=== PATIENT | female | born 1965 | race Caucasian/White ===

== ENCOUNTER → 2021-11-16 08:32 | Outpatient (BNVA) | payer MEDICAID, SELFPAY | PROVIDERS: PCP Internal Medicine; Visit Provider Nurse Practitioner Family | DX: R51.9 Headache, unspecified (principal); G89.29 Other chronic pain; G25.81 Restless legs syndrome; F43.12 Post-traumatic stress disorder, chronic | CPT/HCPCS: 99212 ==

== ENCOUNTER 2021-12-07 10:00 | Outpatient (RCR) | payer OTHER, SELFPAY ==
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
--- NOTE | 2021-11-11 08:57 | PC.NURSE ---
Case opened in tx team
--- NOTE | 2021-11-11 14:30 | PC.NURSE ---
I spoke with the client to review her treatment plan. She states that she often feels as if someone is breaking into her home in the middle of the night. When she gets severely anxious she will the take a ride in her car . What she presented feels somewhat delusional although difficult to distinguish if this is delusional although I believe so . We discussed calling crisis for support if needed. She said she would . I Gave her the number for [facility] crisis line and told her I would call them to let them know she may be calling.
--- NOTE | 2021-11-11 15:01 | PC.NURSE ---
called N crisis and put client on alert. She will be on alert for seven days. I spoke with Flora
--- NOTE | 2021-11-15 10:58 | HO.PHPPROGNO ---
Subjective Subjective Date of Service: 11/15/21 Reason For Visit: DEPRESSION Guardianship: No Medical Problems Affecting Mental Status: No Interim History: Describes mood as I'm alright, less tearful . No thoughts of harm to self or others. Reports feels safe in home. Would like dose decrease in seroquel, has found it helpful in place of cannabis. States she knows she was having paranoid thoughts, I'm trying to figure out why I had them . Continues with some depressive and PTSD sx, although some improvement. Interested in prazosin for nightmares. Medication Compliance: Yes Side effects from medications: Yes (the seroquel 25 felt too strong , foggy. asking for lower dose) Attending Groups: Yes Review of Systems Acute medical concerns: No Medical Review of Systems: unchanged Review of Systems Review of Systems Yes all other systems are reviewed and are negative Constitutional: Reports no additional constitutional complaints Mental Status Exam Mental Status Exam Narrative: Well-developed, well-nourished female, in NAD. Patient Appearance: Well Grooomed and Appropriate Patient Orientation: Person, Place, Time and Situation Level of Consciousness: Appropriate and Alert Patient Behavior: Appropriate, Cooperative and Good Eye Contact Mood Description: Depressed and Anxious Affect Description: Depressed and Anxious Patient Cognition Impaired: No Ability to Follow Directions: Excellent Speech Pattern: Clear, Appropriate, Spontaneous Speech and Coherent Memory Description: Intact Hallucinations: None Thought Process: Intact Thought Content: positive for Intact, positive for Goal Oriented and positive for Linear Depressive Symptoms: Increased Anxiety, Difficulty Sleeping, Changes in Appetite (reduced), Loss of Int. in Activity, Unhappiness, Increased Fatigue and Difficulty Concentrating Judgement: Fair Assessment & Plan Assessment & Plan (1) Post-traumatic stress disorder, chronic: Status: Acute Code(s): F43.12 - Post-traumatic stress disorder, chronic Assessment and Plan: Has found seroquel useful but too strong. Says it is also helping her with cessation of cannabis use. Discuss lowering dose to 12.5mg, she was in agreement with this. willing to try prazosin for nightmares r/t ptsd. (2) Major depressive disorder, recurrent, moderate: Status: Acute Code(s): F33.1 - Major depressive disorder, recurrent, moderate Assessment and Plan: reports continues with depressive symptoms, but notices improvement with lexapro. Says she is less teary . Would like to continue with current lexapro dose for now. Less intrusive, obsessional thoughts. States that she feels her thought process is better . States she understands that she was having some paranoia, but is no longer experiencing. Believes they are not related to her TBI. Assessment and Plan: 1. Continue lexapro 10mg as prescribed. 2. Continue seroquel, but take 1/2 tab (12.5mg) instead of 25mg, due to s/e. 3. Start prazosin 1mg at bedtime. 4. Continue with current [facility] plan of care. 5. Follow-up as per protocol. Patient educated on: diagnosis, medication risk/benefits and therapeutic strategies Informed Consent: understands Reason for contiued partial hosp. stay Substantial Risk for: inability to function and med/psych decompensation Certification I certify that partial hospital treatment is medically necessary due to the symptoms and problems resulting from the patient's mental illness and the failure to treat the patient at the partial hospital level of care would likely result in the patient requiring inpatient psychiatric care which could not be prevented at a less intensive level of care. I spent minutes with the patient and/or on the patient floor today, greater than?50% of which was spent counseling/coordinating care. Discharge Plan Discharge Attending provider: Joey Maradiaga Primary Care Provider: Larry Mcmanus Medications: New quetiapine [Seroquel] 25 mg tablet See Rx Instructions .ROUTE .COMPLEX 7 Days Qty: 21 RF: 0 prazosin 1 mg capsule 1 mg PO BEDTIME 7 Days Qty: 7 RF: 0 No Action nicotine 14 mg/24 hr Patch 24 Hour 1 patch TRANSDERMAL DAILY RF: 0 ibuprofen [Motrin] 800 mg Tablet 800 mg PO BID PRN (Reason: Pain) RF: 0 ropinirole 3 mg Tablet 3 mg PO BEDTIME RF: 0 ropinirole 3 mg Tablet 3 mg PO BID PRN (Reason: Pain) RF: 0 escitalopram oxalate [Lexapro] 10 mg Tablet 10 mg PO DAILY RF: 0 lidocaine 5 % Ointment 1 appl TOPICAL BID PRN (Reason: Pain) RF: 0 sumatriptan succinate [Imitrex] 100 mg tablet See Rx Instructions PO .COMPLEX RF: 0 cetirizine 10 mg tablet 10 mg PO DAILY PRNRF: 0 fluticasone furoate 50 mcg/actuation blister with device inhalation RF: 0 clonazepam [Klonopin] 1 mg tablet 1 mg PO TID RF: 0 magnesium oxide 400 mg magnesium tablet 400 mg PO DAILY RF: 0 riboflavin (vitamin B2) [Vitamin B-2] 100 mg tablet 100 mg PO BID RF: 0 Referrals: Larry Mcmanus DO, MD [Primary Care Provider] - 1 Week Telehealth Telehealth Location of provider rendering services: practice address Location of patient: address on file Patient Identification confirmed using: Name, : Yes Telehealth method: video Patient verbally consented to treatment: Yes Patient verbally consented to billing insurance company: Yes Patient informed of any privacy concerns related to visit: Yes Time spent with patient (mins): 20
--- NOTE | 2021-11-17 13:12 | PC.NURSE ---
I spoke with the client after group to check in about how she is doing. She states that she still feels anxious =in group and can relate to others who share that they are anxious and/or paranoid. She states that she is fearful that others will thing that she trying to relate about everything. I assured her that most people coming here have common issues. She asked to start doing half days to possibly extend her time here. I agreed to drop her down to half day as I have to request more time already.
--- NOTE | 2021-11-18 08:25 | PC.NURSE ---
The client called out sick. She states that she has a very bad headache and didn't sleep well.
--- NOTE | 2021-11-21 14:56 | HO.PHPPROGNO ---
Subjective Subjective Date of Service: 11/21/21 Reason For Visit: DEPRESSION Guardianship: No Medical Problems Affecting Mental Status: No Interim History: Client states I just don't feel good, mentally/physically right now . Sates I feel sad, low, empty . Hypervigilant, fearful. Has not been taking prescribed quetiapine. Requested increase of Lexapro to 15 mg daily. Denies SI, reports feels safe at this time. Medication Compliance: Intermittent (taking lexapro, has not been taking seroquel) Side effects from medications: No Attending Groups: Yes Review of Systems Acute medical concerns: No Medical Review of Systems: unchanged Review of Systems Review of Systems Yes all other systems are reviewed and are negative Constitutional: Reports no additional constitutional complaints Mental Status Exam Mental Status Exam Narrative: Well-developed, well-nourished female, in NAD. Patient Appearance: Fatigued and Appropriate Patient Orientation: Person, Place, Time and Situation Level of Consciousness: Appropriate Patient Behavior: Appropriate, Cooperative and Good Eye Contact Behavior Comments: Exaggerated startle response, hypervigilance observed. Mood Description: Depressed and Sad Affect Description: Depressed, Fearful, Anxious and Sad Patient Cognition Impaired: No Ability to Follow Directions: Excellent Speech Pattern: Clear, Appropriate, Coherent and Soft-Spoken Memory Description: Intact Hallucinations: None Delusions: Paranoid Ideation Thought Process: Intact Thought Content: positive for Intact Depressive Symptoms: Increased Anxiety, Difficulty Sleeping, Changes in Appetite (reduced), Loss of Int. in Activity, Hopelessness, Unhappiness, Increased Fatigue, Low Self Esteem and Difficulty Concentrating Judgement: Fair Assessment & Plan Assessment & Plan (1) Major depressive disorder, recurrent, moderate: Status: Acute Code(s): F33.1 - Major depressive disorder, recurrent, moderate Assessment and Plan: Client continues with dysphoric, hopeless mood, describes as ?I am sad, low, empty ?. Presents as paranoid, frightened. Has camera lifted up towards the ceiling so only face, and upper wall and ceiling of room are in screen. Exaggerated startle response, hypervigilance observed. Denies SI at this time. She was asked to contact us and crisis if she feels unsafe at any time. She was in agreement with this. She has not been taking the Seroquel. Encouraged to start taking it today. She stated that she would do so. Requests increase in Lexapro. Discussed increasing it to 15 mg daily for several days and then reassessing. She was in agreement with this plan. (2) Generalized anxiety disorder: Status: Acute Code(s): F41.1 - Generalized anxiety disorder (3) Post-traumatic stress disorder, chronic: Status: Acute Code(s): F43.12 - Post-traumatic stress disorder, chronic Plan 1. Client agreeable to start utilizing scheduled Seroquel at night and p.r.n. daily as prescribed, start today. 2. Increase Lexapro to 15 mg daily. 3. Reassess client in several days. Patient educated on: diagnosis, medication risk/benefits and therapeutic strategies Informed Consent: understands Reason for contiued partial hosp. stay Substantial Risk for: harm to self, inability to function, rapid decompensation and med/psych decompensation Certification I certify that partial hospital treatment is medically necessary due to the symptoms and problems resulting from the patient's mental illness and the failure to treat the patient at the partial hospital level of care would likely result in the patient requiring inpatient psychiatric care which could not be prevented at a less intensive level of care. I spent ___25___ minutes with the patient and/or on the patient floor today, greater than?50% of which was spent counseling/coordinating care. Discharge Plan Discharge Attending provider: Joey Maradiaga Primary Care Provider: Larry Mcmanus Medications: New quetiapine [Seroquel] 25 mg tablet See Rx Instructions .ROUTE .COMPLEX 7 Days Qty: 21 0RF Rx Instructions: 25 mg orally ;Take 25 mg orally scheduled at bedtime, and one tab (25mg) BID prn for anxiety. prazosin 1 mg capsule 1 mg PO BEDTIME 7 Days Qty: 7 0RF No Action nicotine 14 mg/24 hr Patch 24 Hour 1 patch TRANSDERMAL DAILY 0RF ibuprofen [Motrin] 800 mg Tablet 800 mg PO BID PRN (Reason: Pain) 0RF ropinirole 3 mg Tablet 3 mg PO BEDTIME 0RF ropinirole 3 mg Tablet 3 mg PO BID PRN (Reason: Pain) 0RF escitalopram oxalate [Lexapro] 10 mg Tablet 10 mg PO DAILY 0RF lidocaine 5 % Ointment 1 appl TOPICAL BID PRN (Reason: Pain) 0RF sumatriptan succinate [Imitrex] 100 mg tablet See Rx Instructions PO .COMPLEX 0RF Rx Instructions: take 1 tab at onset of headache; if no relief, may repeat 1 tab after at least 2 hrs; max = 2 tabs/24 hrs PO cetirizine 10 mg tablet 10 mg PO DAILY PRN0RF fluticasone furoate 50 mcg/actuation blister with device inhalation 0RF magnesium oxide 400 mg magnesium capsule 400 mg PO BEDTIME Qty: 30 6RF riboflavin (vitamin B2) 400 mg tablet 400 mg PO DAILY Qty: 30 6RF Referrals: Larry Mcmanus DO, MD [Primary Care Provider] - 1 Week Telehealth Telehealth Location of provider rendering services: practice address Location of patient: address on file Patient Identification confirmed using: Name, : Yes Telehealth method: video Patient verbally consented to treatment: Yes Patient verbally consented to billing insurance company: Yes Patient informed of any privacy concerns related to visit: Yes Time spent with patient (mins): 20
--- NOTE | 2021-11-23 15:54 | HO.PHPPROGNO ---
Subjective Subjective Date of Service: 11/23/21 Reason For Visit: DEPRESSION Guardianship: No Medical Problems Affecting Mental Status: No Interim History: Client reports continued intrusive thoughts. Fearful to take medications because she is afraid they will not allow her to wake up in home. Continues with paranoia. No SI, no safety concern at this time. Medication Compliance: No Side effects from medications: No Attending Groups: Yes Review of Systems Acute medical concerns: No Medical Review of Systems: unchanged Review of Systems Review of Systems Yes all other systems are reviewed and are negative Constitutional: Reports no additional constitutional complaints Mental Status Exam Mental Status Exam Narrative: Well-developed, well-nourished female, in NAD. Patient Appearance: Fatigued and Appropriate Patient Orientation: Person, Place, Time and Situation Level of Consciousness: Appropriate Patient Behavior: Appropriate, Cooperative, Anxious and Good Eye Contact Behavior Comments: Exaggerated startle response, hypervigilance observed. Mood Description: Depressed, Anxious and Sad Affect Description: Depressed, Fearful, Anxious and Sad Patient Cognition Impaired: No Ability to Follow Directions: Excellent Speech Pattern: Clear, Appropriate, Coherent and Soft-Spoken Memory Description: Intact Hallucinations: None Delusions: Paranoid Ideation Thought Process: Intact and Rumination Thought Content: positive for Intact and positive for Perseveration (Continues fearful that somebody will break in to home.) Depressive Symptoms: Increased Anxiety, Difficulty Sleeping, Changes in Appetite (reduced), Loss of Int. in Activity, Hopelessness, Unhappiness, Increased Fatigue, Low Self Esteem and Difficulty Concentrating Judgement: Fair Assessment & Plan Assessment & Plan (1) Major depressive disorder, recurrent, moderate: Status: Acute Code(s): F33.1 - Major depressive disorder, recurrent, moderate Assessment and Plan: Client continues with depressed, anxious mood and affect. She reports she has not started taking prazosin as she wishes to be at her mother's house when she takes it. She is also not taking prescribed Seroquel. She reports she is fearful that the medications will make her too tired, and she wants to be able to wake up. Continues with paranoia regarding fear that somebody will hurt her, break into her home. Discussed medications. She continues with Lexapro 10 mg. Denies any side effects from the medication, and reports that she feels it is helping at that dose. Discussed changing atypical antipsychotic from Seroquel to risperidone 0.5 b.i.d., to start today. She was willing to give this a trial. Denies SI, no safety concern. Denies auditory or visual hallucinations, did not appear to be responding to any type of internal stimuli. (2) Generalized anxiety disorder: Status: Acute Code(s): F41.1 - Generalized anxiety disorder (3) Post-traumatic stress disorder, chronic: Status: Acute Code(s): F43.12 - Post-traumatic stress disorder, chronic Plan 1. Discontinue quetiapine. 2. Start risperidone 0.5 b.i.d.. 3. Continue Lexapro 10 mg as prescribed. Client encouraged to start prazosin. Patient educated on: diagnosis, medication risk/benefits and therapeutic strategies Informed Consent: understands Reason for contiued partial hosp. stay Substantial Risk for: inability to function, rapid decompensation and med/psych decompensation Certification I certify that partial hospital treatment is medically necessary due to the symptoms and problems resulting from the patient's mental illness and the failure to treat the patient at the partial hospital level of care would likely result in the patient requiring inpatient psychiatric care which could not be prevented at a less intensive level of care. I spent minutes with the patient and/or on the patient floor today, greater than?50% of which was spent counseling/coordinating care. Discharge Plan Discharge Attending provider: Joey Maradiaga Primary Care Provider: Larry Mcmanus Medications: New prazosin 1 mg capsule 1 mg PO BEDTIME 7 Days Qty: 7 0RF risperidone 0.5 mg tablet 0.5 mg PO BID 7 Days Qty: 14 0RF No Action nicotine 14 mg/24 hr Patch 24 Hour 1 patch TRANSDERMAL DAILY 0RF ibuprofen [Motrin] 800 mg Tablet 800 mg PO BID PRN (Reason: Pain) 0RF ropinirole 3 mg Tablet 3 mg PO BEDTIME 0RF ropinirole 3 mg Tablet 3 mg PO BID PRN (Reason: Pain) 0RF escitalopram oxalate [Lexapro] 10 mg Tablet 10 mg PO DAILY 0RF lidocaine 5 % Ointment 1 appl TOPICAL BID PRN (Reason: Pain) 0RF sumatriptan succinate [Imitrex] 100 mg tablet See Rx Instructions PO .COMPLEX 0RF Rx Instructions: take 1 tab at onset of headache; if no relief, may repeat 1 tab after at least 2 hrs; max = 2 tabs/24 hrs PO cetirizine 10 mg tablet 10 mg PO DAILY PRN0RF fluticasone furoate 50 mcg/actuation blister with device inhalation 0RF magnesium oxide 400 mg magnesium capsule 400 mg PO BEDTIME Qty: 30 6RF riboflavin (vitamin B2) 400 mg tablet 400 mg PO DAILY Qty: 30 6RF Referrals: Larry Mcmanus DO, MD [Primary Care Provider] - 1 Week Telehealth Telehealth Location of provider rendering services: practice address Location of patient: address on file Patient Identification confirmed using: Name, : Yes Telehealth method: video Patient verbally consented to treatment: Yes Patient verbally consented to billing insurance company: Yes Patient informed of any privacy concerns related to visit: Yes Time spent with patient (mins): 20
--- NOTE | 2021-11-24 08:52 | PC.NURSE ---
Addendum entered by Tomasa Villar [facility] 11/24/21 08:57: We discussed skills to use and I said that the nurse will call her. Original Note: The client called out She only slept two hours and is experiencing severe anxiety and panic. She states that she is having side effects from starting the resperdal yesterday.
--- NOTE | 2021-11-24 09:43 | PC.NURSE ---
Patient called staff to let them know she was not coming to the program today. She spoke to staff and stated she only slept 2 hours last night and was anxious and having panic attacks. Hilda Sales Np and I called patient to f/u. Patient stated she tried prescribed Risperdal last night and had racing thoughts all night. She reports she slept for 2 hours then woke up and had a panic attack. She stated the medication was not the right medication for her. Patient also stated last night she was ruminating about her relationship of 6 years ending. Asked patient if she was safe and if she was having thoughts to harm or kill herself. Patient denied thoughts stated she was safe. Denied any paranoid thoughts. Asked patient if she was smoking marijuana. Patient reports she cut down and has not been using during the week however used last weekend. Patient stated she is feeling better as the day goes on. Does not feel she needs to go to the hospital. Patient is scared to try new medications however did agree to start Seroquel per Hilda's instructions 25 mg in the am and 50 mg at night. Patient stated she plans on resting and laying down as her head is, throbbing . Plans on returning to the program tomorrow.
--- NOTE | 2021-11-24 10:00 | PM.EVENT ---
Event Note Date of Service: 11/24/21 Event Note: Called client at home with program RN. Client had called out today. She reports she did not like effect of Risperdal, and only slept 2 hours last night. Recommended at this time to resume Seroquel as follows: Take Seroquel 25 mg scheduled in the morning, and Seroquel 50 scheduled at bedtime. Patient has supply at home. Client denied any SI, HI, reports feeling safe.
--- NOTE | 2021-11-25 15:44 | HO.PHPPROGNO ---
Subjective Subjective Date of Service: 11/25/21 Reason For Visit: DEPRESSION Guardianship: No Medical Problems Affecting Mental Status: No Interim History: Client reports improved sleep with Seroquel 50 mg at bedtime. However, reports medication is too sedating during day. Requesting medication to assist with anxiety during day. Medication Compliance: Intermittent Side effects from medications: Yes (Reports Seroquel too sedating during day.) Attending Groups: Yes Review of Systems Acute medical concerns: No Medical Review of Systems: unchanged Review of Systems Review of Systems Yes all other systems are reviewed and are negative Constitutional: Reports no additional constitutional complaints Mental Status Exam Mental Status Exam Narrative: Conducted phone visit with client. She denies any thoughts of harm to self or others. Denies paranoid thoughts, auditory or visual hallucinations. Patient Orientation: Person, Place, Time and Situation Level of Consciousness: Awake and Alert Patient Behavior: Appropriate and Cooperative Mood Description: Anxious Patient Cognition Impaired: No Ability to Follow Directions: Excellent Speech Pattern: Clear, Appropriate and Coherent Memory Description: Intact Hallucinations: None Delusions: Not Present Thought Process: Intact Thought Content: positive for Intact Depressive Symptoms: Increased Anxiety, Difficulty Sleeping, Hopelessness, Unhappiness and Increased Fatigue Judgement: Fair Assessment & Plan Assessment & Plan (1) Major depressive disorder, recurrent, moderate: Status: Acute Code(s): F33.1 - Major depressive disorder, recurrent, moderate Assessment and Plan: Client reports she took 50 mg Seroquel last night, it was effective in helping her sleep throughout the night. She reports she does not want to take it in the morning, as she finds it too sedating. Denies any thoughts of harm to self or others, no safety concern at this time. she has been taking Lexapro at 15 mg daily for past week, continues with anxious mood and affect. Requesting Klonopin. Suggested she reach out to her neurologist, who she states has prescribed Klonopin for her in the past. A mass Pat review shows 1 script of Klonopin, written in 09/2020. Discussed other medication options, such as increasing Lexapro dose to 20 mg daily, adding p.r.n. Vistaril in order to help with anxiety during the day. Client was agreeable. (2) Generalized anxiety disorder: Status: Acute Code(s): F41.1 - Generalized anxiety disorder (3) Post-traumatic stress disorder, chronic: Status: Acute Code(s): F43.12 - Post-traumatic stress disorder, chronic Plan 1. Increase Lexapro to 20 mg daily. 2. Continue with Seroquel 50 mg at bedtime. 3. Add Vistaril 25 mg t.i.d. p.r.n. anxiety. Patient educated on: diagnosis, medication risk/benefits and therapeutic strategies Informed Consent: understands Reason for contiued partial hosp. stay Substantial Risk for: inability to function, rapid decompensation and med/psych decompensation Certification I certify that partial hospital treatment is medically necessary due to the symptoms and problems resulting from the patient's mental illness and the failure to treat the patient at the partial hospital level of care would likely result in the patient requiring inpatient psychiatric care which could not be prevented at a less intensive level of care. I spent minutes with the patient and/or on the patient floor today, greater than?50% of which was spent counseling/coordinating care. Discharge Plan Discharge Attending provider: Joey Maradiaga Primary Care Provider: Larry Mcmanus Medications: New prazosin 1 mg capsule 1 mg PO BEDTIME 7 Days Qty: 7 0RF quetiapine [Seroquel] 50 mg tablet 50 mg PO BEDTIME 14 Days Qty: 14 0RF escitalopram oxalate [Lexapro] 20 mg tablet 20 mg PO DAILY 14 Days Qty: 14 0RF hydroxyzine pamoate [Vistaril] 25 mg capsule 25 mg PO TID PRN (Reason: anxiety) 14 Days Qty: 42 0RF Discontinued escitalopram oxalate [Lexapro] 10 mg Tablet 10 mg PO DAILY 0RF No Action nicotine 14 mg/24 hr Patch 24 Hour 1 patch TRANSDERMAL DAILY 0RF ibuprofen [Motrin] 800 mg Tablet 800 mg PO BID PRN (Reason: Pain) 0RF ropinirole 3 mg Tablet 3 mg PO BEDTIME 0RF ropinirole 3 mg Tablet 3 mg PO BID PRN (Reason: Pain) 0RF lidocaine 5 % Ointment 1 appl TOPICAL BID PRN (Reason: Pain) 0RF sumatriptan succinate [Imitrex] 100 mg tablet See Rx Instructions PO .COMPLEX 0RF Rx Instructions: take 1 tab at onset of headache; if no relief, may repeat 1 tab after at least 2 hrs; max = 2 tabs/24 hrs PO cetirizine 10 mg tablet 10 mg PO DAILY PRN0RF fluticasone furoate 50 mcg/actuation blister with device inhalation 0RF magnesium oxide 400 mg magnesium capsule 400 mg PO BEDTIME Qty: 30 6RF riboflavin (vitamin B2) 400 mg tablet 400 mg PO DAILY Qty: 30 6RF Referrals: Larry Mcmanus DO, MD [Primary Care Provider] - 1 Week Telehealth Telehealth Location of provider rendering services: practice address Location of patient: address on file Patient Identification confirmed using: Name, : Yes Telehealth method: voice only Patient verbally consented to treatment: Yes Patient verbally consented to billing insurance company: Yes Patient informed of any privacy concerns related to visit: Yes Time spent with patient (mins): 15
--- NOTE | 2021-11-28 14:13 | PC.NURSE ---
Addendum entered by Tomasa Villar [facility] 11/28/21 14:15: I spoke with Kathy Original Note: I called crisis to inform them that the client may be calling. I explained her symptoms and that she may be calling for help with getting medications adjusted inpatient.
--- NOTE | 2021-11-28 14:18 | HO.PHPPROGNO ---
Subjective Subjective Date of Service: 11/28/21 Reason For Visit: DEPRESSION Guardianship: No Medical Problems Affecting Mental Status: No Interim History: has taken lexapro 20mg for fist time today. Has not taken any prozosin. Has taken 1st dose vistaril this am, reports it is causing racy, on edge inside . Continues with difficulty regarding paranoia and reality. Has taken seroquel past several days. Denies SI. Requests klonopin. Medication Compliance: Intermittent Side effects from medications: Yes (Reports feeling activated from Vistaril.) Attending Groups: Yes Review of Systems Acute medical concerns: No Medical Review of Systems: unchanged Review of Systems Review of Systems Yes all other systems are reviewed and are negative Constitutional: Reports no additional constitutional complaints Mental Status Exam Mental Status Exam Narrative: Presents with anxious mood and affect. No SI/HI, but does report difficulty discerning reality from paranoia. Difficulty with orientation at times, kept referring to this internal communications writer as another person. Patient Appearance: Fatigued and Appropriate Patient Orientation: Person (oriented to self, otherwise confused at times. ), Place, Time and Situation Level of Consciousness: Awake, Restless and Alert Patient Behavior: Appropriate, Cooperative and Anxious Mood Description: Anxious, Nervous and Apprehensive Affect Description: Depressed, Anxious, Nervous and Apprehensive Patient Cognition Impaired: No Ability to Follow Directions: Excellent Speech Pattern: Clear, Appropriate and Coherent Memory Description: Intact Hallucinations: None Delusions: Not Present and Paranoid Ideation Thought Process: Racing and Illogical Thought Content: positive for Intact, positive for Obsessional Thoughts, positive for Perseveration and positive for Disorganized (at times) Depressive Symptoms: Increased Anxiety, Difficulty Sleeping, Hopelessness, Unhappiness and Increased Fatigue Judgement: Fair Assessment & Plan Assessment & Plan (1) Major depressive disorder, recurrent, moderate: Status: Acute Code(s): F33.1 - Major depressive disorder, recurrent, moderate Assessment and Plan: Patient presents with anxious, depressed mood an affect. Reports she began taking the higher dose of Lexapro this morning. Denies SI/HI at this time. Reports that she feels her medications are not working, and that she continues with panic and anxiety symptoms. She states ?I do not feel like I have touched the surface of was going on inside me ?. Tried Vistaril this morning, reports that it is causing her to feel ?racy, on edge inside ?. Reports that when she saw neurologist in the past she was given Klonopin. Asks for Klonopin at this time. She was referred to speak with her neurologist regarding that medication. She then states ?I am still trying to figure out, paranoia...., I do not think it is me doing it ?. Does report that the 1 time she took risperidone, she became impulsive, and then texted her ex partner 15 times. She states that she is having difficulty finding what medications will help with her paranoia. Reports taking current psychiatric medications Lexapro 20, hydroxyzine 25 (only once, this am), Seroquel 50 mg at bedtime (for past 2 - 3 days). Does not plan to take prazosin, has not taken any since script sent several weeks ago. Discussed calling crisis for an evaluation. She was in agreement to do this at this time. Phone number was provided to client. She does report that she is not having thoughts of harming herself or others, and that overall she feels safe. But she does state that she is having trouble discerning reality at this time, which is causing intense anxiety . (2) Post-traumatic stress disorder, chronic: Status: Acute Code(s): F43.12 - Post-traumatic stress disorder, chronic (3) TBI (traumatic brain injury): Status: Acute Code(s): S06.9X9A - Unspecified intracranial injury with loss of consciousness of unspecified duration, initial encounter Plan 1. Client to continue Lexapro 20 mg daily. 2. Client to continue quetiapine 50 mg at bedtime. 3. Client to call crisis today due to increased paranoia and anxiety/panic. 4. Follow-up as per protocol. Patient educated on: diagnosis, medication risk/benefits and therapeutic strategies Informed Consent: understands Reason for contiued partial hosp. stay Substantial Risk for: inability to function, rapid decompensation and med/psych decompensation Certification I certify that partial hospital treatment is medically necessary due to the symptoms and problems resulting from the patient's mental illness and the failure to treat the patient at the partial hospital level of care would likely result in the patient requiring inpatient psychiatric care which could not be prevented at a less intensive level of care. I spent minutes with the patient and/or on the patient floor today, greater than?50% of which was spent counseling/coordinating care. Discharge Plan Discharge Attending provider: Joey Maradiaga Primary Care Provider: Larry Mcmanus Medications: New quetiapine [Seroquel] 50 mg tablet 50 mg PO BEDTIME 14 Days Qty: 14 0RF escitalopram oxalate [Lexapro] 20 mg tablet 20 mg PO DAILY 14 Days Qty: 14 0RF hydroxyzine pamoate [Vistaril] 25 mg capsule 25 mg PO TID PRN (Reason: anxiety) 14 Days Qty: 42 0RF Discontinued escitalopram oxalate [Lexapro] 10 mg Tablet 10 mg PO DAILY 0RF No Action nicotine 14 mg/24 hr Patch 24 Hour 1 patch TRANSDERMAL DAILY 0RF ibuprofen [Motrin] 800 mg Tablet 800 mg PO BID PRN (Reason: Pain) 0RF ropinirole 3 mg Tablet 3 mg PO BEDTIME 0RF ropinirole 3 mg Tablet 3 mg PO BID PRN (Reason: Pain) 0RF lidocaine 5 % Ointment 1 appl TOPICAL BID PRN (Reason: Pain) 0RF sumatriptan succinate [Imitrex] 100 mg tablet See Rx Instructions PO .COMPLEX 0RF Rx Instructions: take 1 tab at onset of headache; if no relief, may repeat 1 tab after at least 2 hrs; max = 2 tabs/24 hrs PO cetirizine 10 mg tablet 10 mg PO DAILY PRN0RF fluticasone furoate 50 mcg/actuation blister with device inhalation 0RF magnesium oxide 400 mg magnesium capsule 400 mg PO BEDTIME Qty: 30 6RF riboflavin (vitamin B2) 400 mg tablet 400 mg PO DAILY Qty: 30 6RF Referrals: Larry Mcmanus DO, MD [Primary Care Provider] - 1 Week Telehealth Telehealth Location of provider rendering services: practice address Location of patient: address on file Patient Identification confirmed using: Name, : Yes Telehealth method: video Patient verbally consented to treatment: Yes Patient verbally consented to billing insurance company: Yes Patient informed of any privacy concerns related to visit: Yes Time spent with patient (mins): 20
--- NOTE | 2021-11-29 09:55 | PC.NURSE ---
The client called to inform me she won't be in today because she has a very bad headache. She reports that she did take her medication last night.
--- NOTE | 2021-12-01 16:15 | HO.PHPPROGNO ---
Subjective Subjective Date of Service: 12/01/21 Reason For Visit: DEPRESSION Guardianship: No Medical Problems Affecting Mental Status: No Interim History: Describes mood as ?all right ?. Reports she is willing to take medications now. Reports she is having difficulty getting tasks done due to paranoia, now willing to take quetiapine as prescribed. Requesting medication to assist with anxiety. Stop taking Vistaril, did not find it helpful. No SI at this time, no safety concern. Medication Compliance: Intermittent Side effects from medications: No Attending Groups: Yes Review of Systems Acute medical concerns: No Medical Review of Systems: unchanged Review of Systems Review of Systems Yes all other systems are reviewed and are negative Constitutional: Reports no additional constitutional complaints Mental Status Exam Mental Status Exam Narrative: Presents as anxious, no abnormal movements, no tics or tremors noted. Fully attentive during encounter. Patient Appearance: Appropriate Patient Orientation: Person (oriented to self, otherwise confused at times. ), Place, Time and Situation Level of Consciousness: Awake, Appropriate and Alert Patient Behavior: Appropriate, Cooperative and Anxious Mood Description: Anxious Affect Description: Depressed and Anxious Patient Cognition Impaired: No Ability to Follow Directions: Excellent Speech Pattern: Clear, Appropriate and Coherent Memory Description: Intact Hallucinations: None Delusions: Not Present and Paranoid Ideation (Reports that she knows some of her thoughts are irrational, paranoid .) Thought Process: Intact and Rumination Thought Content: positive for Intact Depressive Symptoms: Increased Anxiety, Increased Irritability, Difficulty Sleeping, Hopelessness, Unhappiness and Increased Fatigue Judgement: Fair Assessment & Plan Assessment & Plan (1) Major depressive disorder, recurrent, moderate: Status: Acute Code(s): F33.1 - Major depressive disorder, recurrent, moderate Assessment and Plan: Client reports that she has been having trouble lately getting tasks done, due to paranoia. She states that she finds 1st thoughts are scattered. She spent time with her daughter earlier this week, and found herself to be hostile and irritable while they were out. She states that she is reconsidering taking the Seroquel as prescribed. She reports that it does make her tired in the morning. We discussed taking it in our earlier at night, at 21:00 rather than 22:00. She was agreeable to this plan. She requests something to help with anxiety during the day, as she did not find Vistaril helpful at all. We discussed a trial of BuSpar. She was agreeable to this. Discussed each medication in detail, including risks and benefits, side effects of each. No SI, no safety concern at this time. (2) Post-traumatic stress disorder, chronic: Status: Acute Code(s): F43.12 - Post-traumatic stress disorder, chronic Plan 1. Will now resume taking Seroquel 50 mg at 21:00 daily. 2. Start BuSpar 10 mg t.i.d., script sent. 3. Discontinue Vistaril. 4. Continue to follow [facility] plan of care. 5. Follow-up as per protocol. Patient educated on: diagnosis, medication risk/benefits and therapeutic strategies Informed Consent: understands Reason for contiued partial hosp. stay Substantial Risk for: inability to function, rapid decompensation and med/psych decompensation Certification I certify that partial hospital treatment is medically necessary due to the symptoms and problems resulting from the patient's mental illness and the failure to treat the patient at the partial hospital level of care would likely result in the patient requiring inpatient psychiatric care which could not be prevented at a less intensive level of care. I spent minutes with the patient and/or on the patient floor today, greater than?50% of which was spent counseling/coordinating care. Discharge Plan Discharge Attending provider: Joey Maradiaga Primary Care Provider: Larry Mcmanus Medications: New quetiapine [Seroquel] 50 mg tablet 50 mg PO BEDTIME 14 Days Qty: 14 0RF escitalopram oxalate [Lexapro] 20 mg tablet 20 mg PO DAILY 14 Days Qty: 14 0RF buspirone 10 mg tablet 10 mg PO TID 30 Days Qty: 90 0RF Discontinued escitalopram oxalate [Lexapro] 10 mg Tablet 10 mg PO DAILY 0RF No Action nicotine 14 mg/24 hr Patch 24 Hour 1 patch TRANSDERMAL DAILY 0RF ibuprofen [Motrin] 800 mg Tablet 800 mg PO BID PRN (Reason: Pain) 0RF ropinirole 3 mg Tablet 3 mg PO BEDTIME 0RF ropinirole 3 mg Tablet 3 mg PO BID PRN (Reason: Pain) 0RF lidocaine 5 % Ointment 1 appl TOPICAL BID PRN (Reason: Pain) 0RF sumatriptan succinate [Imitrex] 100 mg tablet See Rx Instructions PO .COMPLEX 0RF Rx Instructions: take 1 tab at onset of headache; if no relief, may repeat 1 tab after at least 2 hrs; max = 2 tabs/24 hrs PO cetirizine 10 mg tablet 10 mg PO DAILY PRN0RF fluticasone furoate 50 mcg/actuation blister with device inhalation 0RF magnesium oxide 400 mg magnesium capsule 400 mg PO BEDTIME Qty: 30 6RF riboflavin (vitamin B2) 400 mg tablet 400 mg PO DAILY Qty: 30 6RF Referrals: Larry Mcmanus DO, MD [Primary Care Provider] - 1 Week Telehealth Telehealth Location of provider rendering services: practice address Location of patient: address on file Patient Identification confirmed using: Name, : Yes Telehealth method: video Patient verbally consented to treatment: Yes Patient verbally consented to billing insurance company: Yes Patient informed of any privacy concerns related to visit: Yes Time spent with patient (mins): 20
--- NOTE | 2021-12-05 09:26 | PC.NURSE ---
I called client to inquire about absence. She states that she is not coming in because she has a bad headache and not sleeping. She said she had sent an email to Jessica this am.
--- NOTE | 2021-12-07 12:50 | PM.EVENT ---
Event Note Date of Service: 12/07/21 Event Note: Client missed appointment today scheduled at 12:35. I called her home number, there was no answer.
--- NOTE | 2021-12-07 16:29 | PC.NURSE ---
The client called and left a message during the second group that she will not be in for the remainder of the day because of a severe headache. I called her back after the group and left a message to call me.
--- NOTE | 2021-12-09 15:36 | MHC.CARE ---
The client called out sick. States that she will be in for her last day sunday
--- NOTE | 2021-12-09 15:37 | PC.NURSE ---
the client called out sick
--- NOTE | 2021-12-13 15:04 | PC.NURSE ---
The client was scheduled for her last day today. She called and left a message that she is too anxious to attend. I called and left her a message to call me about her discharge today and her aftercare plans.
--- NOTE | 2021-12-14 11:04 | PC.NURSE ---
Patient did not show up her last scheduled day in the program. She contacted Jessica and stated she was too anxious and nervous to attend. Ele called patient to f/u with aftercare plans.
== END 2021-12-13 23:59 | disposition home or self-care (01) ==
LOC: HO.PHPA 10:00
PROVIDERS: PCP Internal Medicine; Visit Provider Psychiatry & Neurology Psychiatry
DX: F33.1 Major depressive disorder, recurrent, moderate (principal); F43.12 Post-traumatic stress disorder, chronic; F41.1 Generalized anxiety disorder; Z87.820 Personal history of traumatic brain injury; Z79.899 Other long term (current) drug therapy
CPT/HCPCS: 90791; 90853

== ENCOUNTER 2022-03-24 08:07 | Outpatient (REF) | payer MEDICAID, SELFPAY ==
--- NOTE | 2022-03-24 08:10 | EEG_ITS ---
This is a 16-channel EEG with an EKG lead. The patient is reported awake during the tracing. Background EEG rhythm is 5 to 20 microvolts, 16 to 20 hertz with no obvious asymmetry or paroxysmal tendency. Photic stimulation does not produce any significant abnormality. Hyperventilation is not performed. Cardiac lead does not reveal any significant abnormality. No sharp wave spikes or paroxysmal tendency noted. IMPRESSION: Unremarkable EEG. MD JAVIER Nguyễn/MARCELLE / [id number]
== END 2022-03-24 08:08 | disposition home or self-care (01) ==
LOC: HO.NEURO 08:07
PROVIDERS: PCP Internal Medicine; Visit Provider Nurse Practitioner Family
DX: F43.12 Post-traumatic stress disorder, chronic (principal); R40.4 Transient alteration of awareness; S06.9X9A Unspecified intracranial injury with loss of consciousness of unspecified duration, initial encounter
CPT/HCPCS: 95816